=== PATIENT | male | born 1985 | race Caucasian/White ===

== ENCOUNTER 2020-09-02 23:45 | Emergency (ER) | payer OTHER ==
[~2020-09-02] VITALS: Ht 165.1 cm; Wt 80.0 kg
[2020-09-02 23:52] VITALS: BP 127/86
[2020-09-03] MEDS ORDERED: LIDOCAINE HCL/PF 1% 10 MG/ML 5ML VIAL IJ ONE (00:30)
[2020-09-03] MEDS ORDERED: TETANUS, DIPHTHERIA, PERTUSSIS VAC/PF 0.5ML (>7YR OLD) IM ONE (00:30)
[2020-09-03] MEDS ORDERED: ACETAMINOPHEN 325MG TABLET PO ONE (00:30)
[2020-09-03] MEDS ORDERED: BACITRACIN ZINC OINT UDPKT TOP ONE (00:30)
== END 2020-09-03 01:06 | disposition home or self-care (01) ==
LOC: ER 23:56
DX: S61.012A Laceration without foreign body of left thumb without damage to nail, initial encounter (principal); Z88.0 Allergy status to penicillin; Z98.890 Other specified postprocedural states; Z96.659 Presence of unspecified artificial knee joint; X58.XXXA Exposure to other specified factors, initial encounter; Y93.89 Activity, other specified; Y92.89 Other specified places as the place of occurrence of the external cause; Y99.8 Other external cause status
CPT/HCPCS: 12002; 90471; 90715; 99283; J3490; Z7610